=== PATIENT | female | born 1985 | race Caucasian/White ===

== ENCOUNTER 2018-01-15 21:02 | Observation (INO) ==
[2018-01-15] MEDS ORDERED: 0.9 % Sodium Chloride 1,000 ML IVC ONE (21:11)
--- NOTE | 2018-01-15 21:24 | Emergency Department Note ---
Overdose - [facility] Narrative Medical decision making narrative: poison control will follow along, requested troponin, will admit for observation , expect slurred speech with overdose. No rec for narcan at this time. - Medical Records Medical records reviewed: Yes I reviewed the patient's medical records. - Lab Data Lab results reviewed: Yes I reviewed the patient's lab results. Result diagrams: 01/15/18 21:42 01/15/18 21:42 Lab Results 01/15/18 01/15/18 01/15/18 Range/Units 21:42 21:42 21:42 WBC 7.1 (4.3-11.1) K/mcL RBC 4.26 (3.82-4.97) M/mcL Hgb 13.3 (11.5-15.4) g/dL Hct 39.8 (35.3-44.9) % MCV 93.4 (83.0-100.0) fL MCH 31.2 (28.0-33.3) pg MCHC 33.4 (31.6-35.5) g/dL RDW 13.1 (11.5-14.5) % Plt Count 311 (140-400) K/mcL MPV 9.7 (9.4-12.4) fL Immature Gran % 0.3 (0-4) % Seg Neutrophils % 50.4 % Lymphocytes % 40.4 % Monocytes % 7.0 % Eosinophils % 1.3 % Basophils % 0.6 % Neutrophils # 3.6 (1.6-8.9) K/mcL Lymphocytes # 2.9 (0.6-4.6) K/mcL Monocytes # 0.5 (0.0-1.3) K/mcL Eosinophils # 0.1 (0.0-0.6) K/mcL Basophils # 0.0 (0.0-0.2) K/mcL Sodium 142 (136-145) mEq/L Potassium 3.6 (3.5-5.1) mEq/L Chloride 109 H (98-107) mEq/L Carbon Dioxide 24 (23-29) mEq/L BUN 15 (6-20) mg/dL Creatinine 0.88 (0.60-1.20) mg/dL Est GFR ( Amer) > 60 (> 60) Est GFR (Non-Af Amer) > 60 (> 60) BUN/Creatinine Ratio 17 (6-26) Glucose 93 (70-105) mg/dL Calculated Osmolality 295 (280-300) Calcium 9.3 (8.6-10.3) mg/dL Total Bilirubin 0.8 (0.3-1.0) mg/dL Direct Bilirubin 0.2 (0.0-0.2) mg/dL Indirect Bilirubin 0.6 (0.0-1.2) mg/dL AST 40 H (13-39) Units/L ALT 42 (7-52) Units/L Alkaline Phosphatase 174 H (34-104) Units/L Troponin I < 0.03 (< 0.04) ng/mL Serum Total Protein 7.8 (6.4-8.9) g/dL Albumin 3.9 (3.5-5.7) g/dL Globulin 3.9 H (2.4-3.5) g/dL Albumin/Globulin Ratio 1.0 L (1.1-2.2) TSH 0.977 (0.340-5.600) mcIU/mL Serum , Qual Negative (Negative) Urine Color (Yellow) Urine Clarity (Clear) Urine pH (5.0-8.0) pH Units Ur Specific [place] (1.010-1.025) Urine Protein (Neg-Trace) mg/dL Urine Glucose (UA) (Normal) mg/dL Urine Ketones (Negative) mg/dL Urine Blood (Negative) Urine Nitrite (Negative) Urine Bilirubin (Negative) Urine Urobilinogen (Normal) mg/dL Ur Leukocyte Esterase (Negative) Urine Microscopic RBC (0-3) per hpf Urine Microscopic WBC (0-3) per hpf Ur Squamous Epith Cells (None-Few) per lpf Urine Bacteria (None-Few) per hpf Hyaline Casts (None-Few) per lpf Salicylates < 2.5 L (15.0-30.0) mg/dL Urine Opiates Screen (Dijlaz=991) ng/mL Acetaminophen < 10 L (10-20) mcg/mL Ur Barbiturates Screen (Haxnva=236) ng/mL Ur Phencyclidine Scrn (Cutoff=25) ng/mL Ur Amphetamines Screen (Gynkjg=4279) ng/mL U Benzodiazepines Scrn (Bstayu=117) ng/mL Urine Cocaine Screen (Cutoff= 300) ng/mL U Marijuana (THC) Screen (Cutoff = 50) ng/mL Ethyl Alcohol < 10 (Less than 10) mg/dL 01/15/18 01/15/18 Range/Units 21:45 21:45 WBC (4.3-11.1) K/mcL RBC (3.82-4.97) M/mcL Hgb (11.5-15.4) g/dL Hct (35.3-44.9) % MCV (83.0-100.0) fL MCH (28.0-33.3) pg MCHC (31.6-35.5) g/dL RDW (11.5-14.5) % Plt Count (140-400) K/mcL MPV (9.4-12.4) fL Immature Gran % (0-4) % Seg Neutrophils % % Lymphocytes % % Monocytes % % Eosinophils % % Basophils % % Neutrophils # (1.6-8.9) K/mcL Lymphocytes # (0.6-4.6) K/mcL Monocytes # (0.0-1.3) K/mcL Eosinophils # (0.0-0.6) K/mcL Basophils # (0.0-0.2) K/mcL Sodium (136-145) mEq/L Potassium (3.5-5.1) mEq/L Chloride (98-107) mEq/L Carbon Dioxide (23-29) mEq/L BUN (6-20) mg/dL Creatinine (0.60-1.20) mg/dL Est GFR ( Amer) (> 60) Est GFR (Non-Af Amer) (> 60) BUN/Creatinine Ratio (6-26) Glucose (70-105) mg/dL Calculated Osmolality (280-300) Calcium (8.6-10.3) mg/dL Total Bilirubin (0.3-1.0) mg/dL Direct Bilirubin (0.0-0.2) mg/dL Indirect Bilirubin (0.0-1.2) mg/dL AST (13-39) Units/L ALT (7-52) Units/L Alkaline Phosphatase (34-104) Units/L Troponin I (< 0.04) ng/mL Serum Total Protein (6.4-8.9) g/dL Albumin (3.5-5.7) g/dL Globulin (2.4-3.5) g/dL Albumin/Globulin Ratio (1.1-2.2) TSH (0.340-5.600) mcIU/mL Serum , Qual (Negative) Urine Color Dark Yellow (Yellow) Urine Clarity Clear (Clear) Urine pH 6.0 (5.0-8.0) pH Units Ur Specific [place] 1.030 H (1.010-1.025) Urine Protein Trace (Neg-Trace) mg/dL Urine Glucose (UA) Normal (Normal) mg/dL Urine Ketones Negative (Negative) mg/dL Urine Blood Negative (Negative) Urine Nitrite Negative (Negative) Urine Bilirubin Small H (Negative) Urine Urobilinogen Normal (Normal) mg/dL Ur Leukocyte Esterase Trace H (Negative) Urine Microscopic RBC 0-3 (0-3) per hpf Urine Microscopic WBC 5-15 H (0-3) per hpf Ur Squamous Epith Cells Many H (None-Few) per lpf Urine Bacteria None Seen (None-Few) per hpf Hyaline Casts Few (None-Few) per lpf Salicylates (15.0-30.0) mg/dL Urine Opiates Screen Positive H (Ozdtgu=930) ng/mL Acetaminophen (10-20) mcg/mL Ur Barbiturates Screen Negative (Aijsqc=176) ng/mL Ur Phencyclidine Scrn Negative (Cutoff=25) ng/mL Ur Amphetamines Screen Positive H (Cwlxwf=3049) ng/mL U Benzodiazepines Scrn Negative (Qwldbk=909) ng/mL Urine Cocaine Screen Positive H (Cutoff= 300) ng/mL U Marijuana (THC) Screen Positive H (Cutoff = 50) ng/mL Ethyl Alcohol (Less than 10) mg/dL - Radiology Data Radiology results reviewed: Yes I reviewed the patient's radiology results. Head CT 01/15/18 21:12 IMPRESSION: No acute intracranial abnormality. D/ / Qing Shaikh MD / Qing Shaikh MD Interpreting Provider: Qing Shaikh MD - EKG Data EKG attestation: Yes I reviewed and interpreted this EKG. Overdose HPI - General Chief Complaint: ED Overdose Time Seen by Provider: 01/15/18 21:10 Source: patient, EMS Limitations: no limitations Nursing Notes Reviewed: Yes Vital Signs Reviewed: Yes - History of Present Illness HPI Narrative: 32-year-old female presents with intentional overdose. Patient is homeless and stated she wanted to go to sleep. She take a total of 4 800 mg gabapentin tablets. She is currently complaining of some head pain in abdominal pain. She reports some vomiting. Denies any shortness of breath. He other drug use. She has history of heroin use. Pt Subjective Complaint: intentional overdose - Related Data Previous Rx's Medication Instructions Recorded NALOXONE 4 MG Nasal [place] [Narcan] 4 mg NS AD #2 sprays 01/15/18 Allergies Allergy/AdvReac Type Severity Reaction Status Date / Time ketorolac [From Toradol] Allergy Hives Verified 10/11/17 17:18 All systems ED: reviewed and negative except as stated. Review of Systems: As Per HPI Constitutional: Denies: fever, chills ENT ED: Denies: congestion Cardiovascular: Denies: chest pain Respiratory: Denies: dyspnea Gastrointestinal: Reports: abdominal pain, nausea Neurological: Reports: headache. Denies: weakness, numbness Past Medical History - Past Medical History Attestation: Yes The following information was validated with the patient. Source: patient Medical history: Reports: valvular heart disease Surgical history: Reports: cholecystectomy Psychiatric history: Reports: anxiety, bipolar, depression, prior suicide attempt, schizophrenia CARD PLACER history: Reports: bilateral tubal ligation - Social History Smoking Status: Current every day smoker Smokeless Tobacco Status: No Alcohol use: Reports: none Drug use: Reports: opiates, methamphetamine, IV Drug Use Physical Exam - General Limitations: no limitations General appearance: alert, appears intoxicated, other (Slurring her speech) - Head Head exam: atraumatic, normocephalic, normal inspection - Eye Eye exam: Present: normal appearance, PERRL, EOMI. Absent: nystagmus - ENT ENT exam: normal exam, normal oropharynx, mucous membranes moist - Neck Neck exam: Present: normal inspection, full ROM, trachea midline - Chest Chest inspection: Present: normal inspection, symmetric chest wall rise. Absent : tenderness - Respiratory Respiratory exam: Present: normal lung sounds bilaterally - Cardiovascular Cardiovascular exam: Present: regular rate, normal rhythm, normal heart sounds. Absent: systolic murmur, diastolic murmur - Abdominal Exam Abdominal exam: Present: soft, tenderness, normal bowel sounds. Absent: distention, guarding, rebound, rigidity Abdominal tenderness: Present: epigastrium - Neurological Exam Neurological exam: Present: alert, oriented X3, CN II-XII intact - Expanded Neurological Exam Patient oriented to: Present: person, place, time Motor strength - LUE: 5/5 Motor strength - RUE: 5/5 Motor strength - LLE: 5/5 Motor strength - RLE: 5/5 - Skin Skin exam: Present: warm, dry, intact, normal color Course Course Narrative: Patient slurring her speech. She is complaining of headaches. She admits to potentially taking for 800 mg tablets of gabapentin so she can sleep because she has not slept for days. Patient has been pink slipped due to the intention of overdose. She moves all for extremities without difficulty. No cervical neck tenderness. Denies any head trauma. Tox screen labs ordered. - Reevaluation(s) Reevaluation #1: CT of the head does not reveal any intracranial abnormality. Review of her labs shows polysubstance abuse. My attending contacted poison control who recommends continued observation. No interventions required at this time. Patient will be admitted for overdose and polysubstance abuse. After further clarification patient states this is accidental as she only wanted to sleep. She denies any suicidal or homicidal ideation. She denies any intent to harm herself. Patient will be admitted to the hospitalist service for observation. Patient may require psychiatric evaluation. - Consultations Consultation #1: Spoke with on-call hospitalist hemanth Harvey to admit for polysubstance abuse, gabapentin overdose. No further orders at this time Vital Signs Temperature 98.6 F 01/15/18 21:11 Pulse Rate 84 01/15/18 21:11 Respiratory Rate 14 01/15/18 21:11 Blood Pressure 122/67 01/15/18 21:11 O2 Sat by Pulse Oximetry 93 01/15/18 21:11 Temperature 97.7 F 01/15/18 23:50 Pulse Rate 73 01/15/18 23:50 Respiratory Rate 16 01/15/18 23:50 Blood Pressure 109/73 01/15/18 23:50 O2 Sat by Pulse Oximetry 95 01/15/18 23:50 Oxygen Delivery Oxygen Delivery Room Air Disposition Clinical Impression: Polysubstance abuse Accidental drug ingestion Qualifiers: Encounter type: initial encounter Qualified Code(s): T50.901A - Poisoning by unspecified drugs, medicaments and biological substances, accidental ( unintentional), initial encounter Disposition: Admitted As Inpatient Time of Disposition: 22:54 Attestation Statement - Attestation Attestation: I examined this patient and my medical decision-making was reviewed with the Resident Physician. I agree with the documented findings, disposition and treatment plan as described except to the extent set forth below. Polysubstance abuse overdose with suspected gabapentin ingestion. Patient will be admitted for observation and until clearance of mental status. Patient's airway was stable at time of admission.
[2018-01-15 21:52] LABS: Bilirubin,Urine Small (Negative); Blood,Urine Negative (Negative); Clarity,Urine Clear (Clear); Color,Urine Dark Yellow (Yellow); Glucose,Urine (UA) Normal (Normal); Ketones,Urine Negative (Negative); Leukocyte Esterase,Urine Trace (Negative); Nitrite,Urine Negative (Negative); Protein,Urine Trace mg/dL (Neg-Trace); Urobilinogen,Urine Normal (Normal)
[2018-01-15 21:54] LABS: Bacteria,Urine None Seen per hpf (None-Few); RBC,Urine 0-3 per hpf (0-3); Squamous Epithelial Cell,Urine Many per lpf (None-Few)
[2018-01-15 21:57] LABS: Basophils % 0.6 %; Eosinophils # 0.1 K/mcL (0.0-0.6); Eosinophils % 1.3 %; Hematocrit 39.8 % (35.3-44.9); Hemoglobin 13.3 g/dL (11.5-15.4); Immature Granulocytes % 0.3 % (0-4); Lymphocytes # 2.9 K/mcL (0.6-4.6); Lymphocytes % 40.4 %; Mean Corpuscular HGB Conc 33.4 g/dL (31.6-35.5); Mean Corpuscular Hemoglobin 31.2 pg (28.0-33.3); Mean Corpuscular Volume 93.4 fL (83.0-100.0); Mean Platelet Volume 9.7 fL (9.4-12.4); Monocytes # 0.5 K/mcL (0.0-1.3); Neutrophils # 3.6 K/mcL (1.6-8.9); Platelet Count 311 K/mcL (140-400); Red Blood Count 4.26 M/mcL (3.82-4.97); Red Cell Distribution Width 13.1 % (11.5-14.5); Segmented Neutrophils % 50.4 %
[2018-01-15 21:58] LABS: Hyaline Casts,Urine Few per lpf (None-Few)
[2018-01-15 22:02] LABS: Amphetamine Screen,Urine Positive ng/mL (Cutoff=1000); Barbiturate Screen,Urine Negative ng/mL (Cutoff=200); Benzodiazepines Screen,Urine Negative ng/mL (Cutoff=200); Cannabinoid Screen,Urine Positive ng/mL (Cutoff = 50); Cocaine Screen,Urine Positive ng/mL (Cutoff= 300); Opiate Screen,Urine Positive ng/mL (Cutoff=300); Phencyclidine Screen,Urine Negative ng/mL (Cutoff=25)
[2018-01-15 22:12] LABS: Acetaminophen < 10 mcg/mL (10-20); Alanine Aminotransferase 42 Units/L (7-52); Albumin 3.9 g/dL (3.5-5.7); Alkaline Phosphatase 174 Units/L (34-104); Aspartate Amino Transferase 40 Units/L (13-39); BUN/Creatinine Ratio 17 (6-26); Bilirubin,Direct 0.2 mg/dL (0.0-0.2); Bilirubin,Indirect 0.6 mg/dL (0.0-1.2); Bilirubin,Total 0.8 mg/dL (0.3-1.0); Blood Urea Nitrogen 15 mg/dL (6-20); Calcium 9.3 mg/dL (8.6-10.3); Carbon Dioxide 24 mEq/L (23-29); Chloride 109 mEq/L (98-107); Ethanol < 10 mg/dL (Less than 10); Globulin 3.9 g/dL (2.4-3.5); Glucose 93 mg/dL (70-105); Osmolality,Calculated 295 (280-300); Potassium 3.6 mEq/L (3.5-5.1); Salicylate < 2.5 mg/dL (15.0-30.0); Sodium 142 mEq/L (136-145); Total Protein 7.8 g/dL (6.4-8.9); eGFR For African Americans > 60 (> 60); eGFR For Non-African Americans > 60 (> 60)
[2018-01-15 22:25] LABS: Thyroid Stimulating Hormone 0.977 mcIU/mL (0.340-5.600)
[2018-01-15] MEDS ORDERED: NALOXONE 4 MG Nasal Spray 2 Sprays/Box NS ONE (22:51)
[2018-01-15 22:56] LABS: Troponin I < 0.03 ng/mL (< 0.04)
--- NOTE | 2018-01-16 07:17 | Electrocardiograph Report ---
[place] [id number] Test Date: 2018-01-15 Pat Name: Di Pozo Department: 103 Room: 3B22 Gender: F Casing Tester: KEYANNA : 1985 Requested By: Panda Nguyen Order Number: [id number] Reading MD: Jose E Rizvi Measurements Intervals [place] Rate: 76 P: 47 [place]: 149 QRS: 40 QRSD: 106 T: 23 QT: 400 QTc: 430 Interpretive Statements SINUS RHYTHM Electronically Signed On 01-16-2018 7:15:34 EDT by Jose E Rizvi
[2018-01-16] MEDS ORDERED: Naloxone 0.4 MG/ML INJ IVP PRN (08:07)
--- NOTE | 2018-01-16 08:13 | Internal Med History&Physical ---
Date of Encounter: 01/16/18 Time of Encounter: 08:10 Internal Medicine - H&P: HPI Chief complaint: Overdose Admitted From: Home Plans for Post Hospital Care: Home History of present illness: Ms. Pozo is a 32 year old female with history of valvular heart disease, anxiety, bipolar, depression, prior suicide attempt, and schizophrenia. Presents today with intentional overdose per ED physician report. However, the patient states that it was unintentional. She reports taking a total of 4-800 mg gabapentin tablets "because she just wanted to go to sleep". She denies any suicidal/homicidal ideation (but this was reported in the ED per ED physician report), hallucinations, seizure-like activity, nausea, vomiting, additional drug use. However, she does have a history of heroin abuse. Past Med Surg Social Fam HX - Past Medical History Medical history: valvular heart disease Psychiatric history: anxiety, bipolar, depression, prior suicide attempt, schizophrenia - Past Surgical History Surgical History: cholecystectomy - Social History Smoking Status: Current every day smoker Smokeless Tobacco Status: No Alcohol use: none Drug use: opiates, methamphetamine, IV Drug Use - Family History Father Family Member Ethnicity: Non- Living Status: Still Living Hx Family Endocrine Disorder: Yes Internal Medicine - H&P: Meds NALOXONE 4 MG Nasal [place] [Narcan] 4 mg NS AD #2 sprays 01/15/18 [Rx] 3 Allergy/AdvReac Type Severity Reaction Status Date / Time ketorolac [From Toradol] Allergy Hives Verified 10/11/17 17:18 All Systems PM: A 10-system review of systems was performed and is negative for pertinent findings except as documented above in the HPI. - Constitutional Constitutional: no chills, no fever(s), no night sweats - EENT Eyes: no change in vision, no discharge, no pain, no photophobia Ears: no ear discharge, no ear pain, no tinnitus Nose, mouth and throat: no dysphagia, no nasal discharge, no neck pain, no sore throat - Cardiovascular Cardiovascular ROS IM: no chest pain, no diaphoresis, no dyspnea, no lightheadedness, no palpitations, no syncope - Respiratory Respiratory: no cough, no dyspnea, no wheezing, no excessive phlegm production - Gastrointestinal Gastrointestinal: no abdominal pain, no diarrhea, no hematemesis, no hematochezia, no melena, no nausea, no vomiting - Genitourinary Genitourinary: no change in urinary stream, no dysuria, no flank pain, no hematuria - Musculoskeletal Musculoskeletal ROS IM: no numbness, no tingling - Integumentary Integumentary IM: no rash, no unusual bruising - Neurological Neurological ROS: no confusion, no convulsions, no focal weakness, no numbness, no tingling, no tremor(s) - Psychiatric Psychiatric: no auditory hallucinations, no homicidal ideation, no hopelessness , no irritability, no suicidal ideation, no visual hallucinations - Hematologic/Lymphatic Hematologic/Lymphatic: no easy bruising - Constitutional Vitals: Temp Pulse Resp BP Pulse Ox 97.4 F L 74 16 120/73 96 01/16/18 08:04 01/16/18 08:04 01/16/18 08:04 01/16/18 08:04 01/16/18 08:04 General appearance: Present: A&O X 3 - Head Head exam: Present: atraumatic, normocephalic - Eye Eye exam: Present: PERRL, conjuntiva pink, sclera anicteric Pupils: Present: PERRL - Neck Neck exam general surgery: Present: supple, trachea midline. Absent: lymphadenopathy - Respiratory Respiratory exam: Present: CTAB. Absent: accessory muscle use, rales, rhonchi, wheezes - Cardiovascular Cardiovascular exam: Present: RRR, +S1, +S2. Absent: diastolic murmur, gallop, rubs, systolic murmur - GI/Abdominal GI/Abdominal exam: Present: normal bowel sounds, soft, no peritoneal signs. Absent: distended, tenderness - Extremities Exam Extremities exam: Present: warm, radial pulses palpable and symmetrical. Absent : calf tenderness, cyanotic, pedal edema - Neurological Exam Neurological exam: Present: CN II-XII intact, oriented X3, no focal deficits. Absent: pronater drift, facial droop, speech deficit - Skin Skin exam: Present: dry, intact Internal Med - H&P Results - Labs CBC & Chem 7: 01/15/18 21:42 01/15/18 21:42 - Impressions Impressions Head CT 01/15/18 21:12 IMPRESSION: No acute intracranial abnormality. D/ / Qing Shaikh MD / Qing Shaikh MD Interpreting Provider: Qing Shaikh MD - Assessment and plan (1) Overdose Current Visit: Yes Status: Acute Assessment and plan: Presents today with a drug overdose; it was reported to the ED physician that this was intentional however, upon my assessment the patient denies any intentional intent for overdose. Additionally, she denies any suicidal ideation /intent or homicidal ideation/intent. The patient is noted to have a prior history of suicide attempt and has a history of polysubstance abuse. Remains slightly lethargic upon my assessment but denies any auditory or visual hallucinations. She reports that she took 4-800 mg tablets of gabapentin in an attempt to sleep. UDS positive for opiates, amphetamines, cocaine and marijuana -Consult social sciences research scientist to discuss potential drug rehabilitation upon discharge due to history of polysubstance abuse -Consult psychiatry to assess intent for suicide -Continuous sitter -Closely monitor for signs and symptoms of withdrawal -Ativan when necessary Qualifiers: Encounter type: initial encounter Injury intent: intentional self-harm Qualified Code(s): T50.902A - Poisoning by unspecified drugs, medicaments and biological substances, intentional self-harm, initial encounter (2) Sedated due to medication Current Visit: Yes Status: Acute Assessment and plan: see above (3) Polysubstance dependence Current Visit: Yes Status: Chronic Assessment and plan: History of polysubstance abuse Admitted today with questionable intentional overdose UDS positive for opiates, amphetamines, cocaine and marijuana Consider drug rehabilitation on discharge; consult social sciences research scientist to discuss (4) DVT prophylaxis Current Visit: Yes Status: Acute Assessment and plan: Heparin 5000 units SC BID - Time Spent With Patient Total time spent is greater than 50% in coordination of care (as documented) at patient's floor/unit and/or counseling patient: 25 - 35 minutes
[2018-01-16] MEDS: *HR* LORazepam 2 MG/ML VIAL IVP PRN (09:24)
[2018-01-16] MEDS: Ondansetron 4 MG/2 ML VIAL IVP PRN ×2 (11:45→18:06)
[2018-01-16] MEDS ORDERED: *HR* LORazepam 2 MG/ML VIAL IVP STA (15:51)
[2018-01-16] MEDS ORDERED: *HR* LORazepam 2 MG/ML VIAL ONE (15:55)
--- NOTE | 2018-01-16 15:58 | Consult Note ---
Date of Encounter: 01/16/18 Time of Encounter: 14:45 History of Present Illness Requesting Physician: Laura Valles MD History of present illness: Pt is a 32 yo, , female, x1 with 7 children (between 5-17) who presents for polysubstance use D/O, opioid use D/O and Schizoaffective D/O bipolar type. Pt noted she overdosed on Gabapentin due to wanting to go to sleep to reduce with drawal symptoms per pt. Pt noted she is optimistic to return home with her family. Pt agreed to initate risperdione 2 m g PO QHS for mood. Pt was educated on the risks benifits and side effects of the medication including no medication. Pt agreed to take medication. PT noted she was in active withdrawal and was having trouble staying awake during the interview. Pt denied any side effects to current medications. Pt noted she felt safe and comfortable on the unit. Pt was in agreement with treatment plan. Pt noted that she is doing not too good today. Pt noted she slept some, " last night. Pt noted her appetite is improving. Pt rated her depression a 0, on a scale of zero to ten with ten being the worst and zero being none. Pt rate her anxiety a 0, on the same scale. Pt denied any visual hallucinations, however noted chronic auditory hallucinations of voices that are muffled. Pt denied any thoughts to harm herself or anyone else. Pt noted a family hx of schizoaffective D/O in her mother. Pt denies any family hx of suicides P denied any previous inpt psychatric admissions. Pt denied any current pending legal issues Pt noted her highest education in 9th grade. Tobacco: 1 ppd Alcohol: Denies Street: Methamphetamine and Heroin IV regularly Caffeine: 2-3 per day MSE: Alert and Oriented x3 Appearance: neatly groomed dressed in appropriate hospital attire. Behavior: friendly, courteous, polite Speech: Fluent, normal tone, normal rate Mood: depressed Affect: mood congruent Thought content: no HI noted, no SI noted, Questionable delusions noted Psychosis: noted auditory hallucinations. Thought Process: Linear coherent goal directed yet reduction in neurocognition noted due to withdrawal symptoms. Judgment: fair. Insight: questionable. 1.Interval hx 2.Continue current medications 3.Review current labs 4.Pt had an opportunity to ask questions and discuss current treatment plan. 5.Supportive therapy was provided 6.Pt encouraged to consider group or individual therapy 7.Pt was in agreement with treatment plan. 8.Pt was educated on the risks benefits and side effects of current medications. 9. Continue pt with sitter. 10. Start risperidone 2 mg PO QHS for mood 11. Transfer to In psych once medically stable. CC: Laura Valles MD Past Med Surg Social Fam HX - Past Medical History Medical history: valvular heart disease - Past Psychiatric History Psychiatric history: Reports: schizophrenia, other Past psychiatric history details: schizoaffective D/O bipolar type. Family psychiatric history: Yes Family History of Suicide: None - Past Surgical History Surgical History: cholecystectomy - Social History Smoking Status: Current every day smoker Smokeless Tobacco Status: No Alcohol use: none Drug use: opiates, methamphetamine, IV Drug Use - Family History Father Family Member Ethnicity: Non- Living Status: Still Living Hx Family Endocrine Disorder: Yes Medications & Allergies NALOXONE 4 MG Nasal [place] [Narcan] 4 mg NS AD #2 sprays 01/15/18 [Rx] 3 Allergy/AdvReac Type Severity Reaction Status Date / Time ketorolac [From Toradol] Allergy Hives Verified 01/16/18 11:17 Psychiatry Exam - Constitutional Vitals: Temp Pulse Resp BP Pulse Ox 96.0 F L 67 16 108/72 99 01/16/18 12:09 01/16/18 12:09 01/16/18 12:09 01/16/18 12:09 01/16/18 12:09 - Psychiatric Patient Orientation: Yes Person, Yes Time, Yes Place Level of alertness: Alert Behavior: calm Psychomotor activity: Slowed Eye Contact: Maintains Eye Contact Mood Description: Depressed Affect description: congruent with mood, flat Speech Volume: Normal Speech pattern: normal rate, normal rhythm, normal tone, fluent, slowed Language & Vocabulary: consistent with education Thought Process: Intact, Logical, Linear, Goal Oriented Thought Content: Yes Intact Attention Span Ability: Capable of Focused Attention Memory Description: Grossly Intact Patient Reliability: Questionable Historian Fund of knowledge: Yes average Intelligence Estimate: Average Judgment: Limited Insight: Partial Results - Labs Labs: Laboratory Last Values WBC 7.1 K/mcL (4.3-11.1) 01/15/18 21:42 RBC 4.26 M/mcL (3.82-4.97) 01/15/18 21:42 Hgb 13.3 g/dL (11.5-15.4) 01/15/18 21:42 Hct 39.8 % (35.3-44.9) 01/15/18 21:42 MCV 93.4 fL (83.0-100.0) 01/15/18 21:42 MCH 31.2 pg (28.0-33.3) 01/15/18 21:42 MCHC 33.4 g/dL (31.6-35.5) 01/15/18 21:42 RDW 13.1 % (11.5-14.5) 01/15/18 21:42 Plt Count 311 K/mcL (140-400) 01/15/18 21:42 MPV 9.7 fL (9.4-12.4) 01/15/18 21:42 Immature Gran % 0.3 % (0-4) 01/15/18 21:42 Seg Neutrophils % 50.4 % 01/15/18 21:42 Lymphocytes % 40.4 % 01/15/18 21:42 Monocytes % 7.0 % 01/15/18 21:42 Eosinophils % 1.3 % 01/15/18 21:42 Basophils % 0.6 % 01/15/18 21:42 Neutrophils # 3.6 K/mcL (1.6-8.9) 01/15/18 21:42 Lymphocytes # 2.9 K/mcL (0.6-4.6) 01/15/18 21:42 Monocytes # 0.5 K/mcL (0.0-1.3) 01/15/18 21:42 Eosinophils # 0.1 K/mcL (0.0-0.6) 01/15/18 21:42 Basophils # 0.0 K/mcL (0.0-0.2) 01/15/18 21:42 Sodium 142 mEq/L (136-145) 01/15/18 21:42 Potassium 3.6 mEq/L (3.5-5.1) 01/15/18 21:42 Chloride 109 mEq/L (98-107) H 01/15/18 21:42 Carbon Dioxide 24 mEq/L (23-29) 01/15/18 21:42 BUN 15 mg/dL (6-20) 01/15/18 21:42 Creatinine 0.88 mg/dL (0.60-1.20) 01/15/18 21:42 Est GFR ( Amer) > 60 (> 60) 01/15/18 21:42 Est GFR (Non-Af Amer) > 60 (> 60) 01/15/18 21:42 BUN/Creatinine Ratio 17 (6-26) 01/15/18 21:42 Glucose 93 mg/dL (70-105) 01/15/18 21:42 Calculated Osmolality 295 (280-300) 01/15/18 21:42 Calcium 9.3 mg/dL (8.6-10.3) 01/15/18 21:42 Total Bilirubin 0.8 mg/dL (0.3-1.0) 01/15/18 21:42 Direct Bilirubin 0.2 mg/dL (0.0-0.2) 01/15/18 21:42 Indirect Bilirubin 0.6 mg/dL (0.0-1.2) 01/15/18 21:42 AST 40 Units/L (13-39) H 01/15/18 21:42 ALT 42 Units/L (7-52) 01/15/18 21:42 Alkaline Phosphatase 174 Units/L (34-104) H 01/15/18 21:42 Troponin I < 0.03 ng/mL (< 0.04) 01/15/18 21:42 Serum Total Protein 7.8 g/dL (6.4-8.9) 01/15/18 21:42 Albumin 3.9 g/dL (3.5-5.7) 01/15/18 21:42 Globulin 3.9 g/dL (2.4-3.5) H 01/15/18 21:42 Albumin/Globulin Ratio 1.0 (1.1-2.2) L 01/15/18 21:42 TSH 0.977 mcIU/mL (0.340-5.600) 01/15/18 21:42 Serum , Qual Negative (Negative) 01/15/18 21:42 Urine Color Dark Yellow (Yellow) 01/15/18 21:45 Urine Clarity Clear (Clear) 01/15/18 21:45 Urine pH 6.0 pH Units (5.0-8.0) 01/15/18 21:45 Ur Specific [place] 1.030 (1.010-1.025) H 01/15/18 21:45 Urine Protein Trace mg/dL (Neg-Trace) 01/15/18 21:45 Urine Glucose (UA) Normal mg/dL (Normal) 01/15/18 21:45 Urine Ketones Negative mg/dL (Negative) 01/15/18 21:45 Urine Blood Negative (Negative) 01/15/18 21:45 Urine Nitrite Negative (Negative) 01/15/18 21:45 Urine Bilirubin Small (Negative) H 01/15/18 21:45 Urine Urobilinogen Normal mg/dL (Normal) 01/15/18 21:45 Ur Leukocyte Esterase Trace (Negative) H 01/15/18 21:45 Urine Microscopic RBC 0-3 per hpf (0-3) 01/15/18 21:45 Urine Microscopic WBC 5-15 per hpf (0-3) H 01/15/18 21:45 Ur Squamous Epith Cells Many per lpf (None-Few) H 01/15/18 21:45 Urine Bacteria None Seen per hpf (None-Few) 01/15/18 21:45 Hyaline Casts Few per lpf (None-Few) 01/15/18 21:45 Salicylates < 2.5 mg/dL (15.0-30.0) L 01/15/18 21:42 Urine Opiates Screen Positive ng/mL (Ejtowi=265) H 01/15/18 21:45 Acetaminophen < 10 mcg/mL (10-20) L 01/15/18 21:42 Ur Barbiturates Screen Negative ng/mL (Jrmjhj=387) 01/15/18 21:45 Ur Phencyclidine Scrn Negative ng/mL (Cutoff=25) 01/15/18 21:45 Ur Amphetamines Screen Positive ng/mL (Dphzrh=8588) H 01/15/18 21:45 U Benzodiazepines Scrn Negative ng/mL (Rfudwi=540) 01/15/18 21:45 Urine Cocaine Screen Positive ng/mL (Cutoff= 300) H 01/15/18 21:45 U Marijuana (THC) Screen Positive ng/mL (Cutoff = 50) H 01/15/18 21:45 Ethyl Alcohol < 10 mg/dL (Less than 10) 01/15/18 21:42 Consult Discharge Plan - Plan Referrals: NONE,PCP [Primary Care Provider] -
[2018-01-16] MEDS: risperiDONE 1 MG TABLET PO SCH (16:04)
[2018-01-16] MEDS: *HR* Heparin 5,000 UNIT/ML VIAL SQ SCH (18:06)
[2018-01-17] MEDS: Ondansetron 4 MG/2 ML VIAL IVP PRN ×3 (03:21→22:04)
[2018-01-17] MEDS: *HR* Heparin 5,000 UNIT/ML VIAL SQ SCH ×2 (05:14→17:54)
[2018-01-17 06:09] LABS: Basophils % 0.6 %; Eosinophils # 0.2 K/mcL (0.0-0.6); Eosinophils % 2.4 %; Hematocrit 36.8 % (35.3-44.9); Hemoglobin 12.2 g/dL (11.5-15.4); Immature Granulocytes % 0.3 % (0-4); Lymphocytes # 2.1 K/mcL (0.6-4.6); Lymphocytes % 32.1 %; Mean Corpuscular HGB Conc 33.2 g/dL (31.6-35.5); Mean Corpuscular Hemoglobin 30.9 pg (28.0-33.3); Mean Corpuscular Volume 93.2 fL (83.0-100.0); Mean Platelet Volume 10.3 fL (9.4-12.4); Monocytes # 0.4 K/mcL (0.0-1.3); Monocytes % 6.2 %; Neutrophils # 3.9 K/mcL (1.6-8.9); Platelet Count 264 K/mcL (140-400); Red Blood Count 3.95 M/mcL (3.82-4.97); Red Cell Distribution Width 13.2 % (11.5-14.5); Segmented Neutrophils % 58.4 %
[2018-01-17 06:27] LABS: BUN/Creatinine Ratio 21 (6-26); Blood Urea Nitrogen 15 mg/dL (6-20); Calcium 8.6 mg/dL (8.6-10.3); Carbon Dioxide 24 mEq/L (23-29); Chloride 110 mEq/L (98-107); Glucose 103 mg/dL (70-105); Osmolality,Calculated 295 (280-300); Potassium 3.8 mEq/L (3.5-5.1); Sodium 142 mEq/L (136-145); eGFR For African Americans > 60 (> 60); eGFR For Non-African Americans > 60 (> 60)
[2018-01-17] MEDS: *HR* LORazepam 2 MG/ML VIAL IVP PRN ×2 (08:10→16:12)
[2018-01-17] MEDS: risperiDONE 1 MG TABLET PO SCH (08:10)
--- NOTE | 2018-01-17 12:13 | Internal Med Progress Note ---
Date of Encounter: 01/17/18 Time of Encounter: 11:00 - Assessment and plan (1) Overdose Current Visit: Yes Status: Acute Assessment and plan: Presented with drug overdose, concern for intentional versus accidental; she took 400 mg tablets of gabapentin and attempt to sleep. she initially reported to the ED physician that this was intentional. However, she has continued to deny any suicidal ideation. She does admit to being depressed and having drug abuse issues but states that she does not want to take her life. Psychiatry in consultation and has seen the patient. Recommendations are as follows -media services coordinator on board to discuss potential drug rehabilitation upon discharge due to history of polysubstance abuse -Psychiatry seeing in consultation- -Continuous sitter -Closely monitor for signs and symptoms of withdrawal -Ativan when necessary -Restart risperidone per psychiatry-2 mg by mouth daily at bedtime remitted -Consider DC to inpatient psych once medically stable per recommendations of psychiatry; patient would benefit from group/individual therapy Qualifiers: Encounter type: initial encounter Injury intent: intentional self-harm Qualified Code(s): T50.902A - Poisoning by unspecified drugs, medicaments and biological substances, intentional self-harm, initial encounter (2) Sedated due to medication Current Visit: Yes Status: Resolved Assessment and plan: Resolved (3) Polysubstance dependence Current Visit: Yes Status: Chronic Assessment and plan: History of polysubstance abuse The patient was admitted for questionable intentional versus accidental overdose. UDS positive for opiates, amphetamines, cocaine and marijuana Consider drug rehabilitation on discharge; consult social work assistant to discuss (4) DVT prophylaxis Current Visit: Yes Status: Acute Assessment and plan: Continue Heparin 5000 units SC BID - Time Spent With Patient Total time spent is greater than 50% in coordination of care (as documented) at patient's floor/unit and/or counseling patient: 25 - 35 minutes - Subjective Interval history: Patient admitted for suicidal ideation and drug overdose; UDS positive for methamphetamines, opiates, marijuana. Denies any suicidal/homicidal ideation today. Denies any visual or auditory hallucinations. Continues to deny tremors. She is admitting to withdrawal symptoms including nausea, diarrhea, anxiety and agitation. Patient reports that she does wish to quit abusing narcotics but denies any acute psychosis. - Constitutional Vitals: Temp Pulse Resp BP Pulse Ox 98.2 F 94 17 126/76 95 01/17/18 10:56 01/17/18 10:56 01/17/18 10:56 01/17/18 10:56 01/17/18 10:56 General appearance: Present: A&O X 3 - Head Head exam: Present: atraumatic, normocephalic - Eye Eye exam: Present: PERRL, conjuntiva pink, sclera anicteric Pupils: Present: PERRL - Neck Neck exam general surgery: Present: supple, trachea midline. Absent: lymphadenopathy - Respiratory Respiratory exam: Present: CTAB. Absent: accessory muscle use, rales, rhonchi, wheezes - Cardiovascular Cardiovascular exam: Present: RRR, +S1, +S2. Absent: diastolic murmur, gallop, rubs, systolic murmur - GI/Abdominal GI/Abdominal exam: Present: normal bowel sounds, soft, no peritoneal signs. Absent: distended, tenderness - Extremities Exam Extremities exam: Present: warm, radial pulses palpable and symmetrical. Absent : calf tenderness, cyanotic, pedal edema - Neurological Exam Neurological exam: Present: alert, CN II-XII intact, oriented X3, no focal deficits. Absent: pronater drift, facial droop, speech deficit - Psychiatric Psychiatric exam: Present: agitated, anxious, depressed. Absent: homicidal ideation, suicidal ideation - Skin Skin exam: Present: dry, intact Internal Medicine: Result - Labs CBC & Chem 7: 01/17/18 04:33 01/17/18 04:33 Labs: Short CBC 01/17/18 Range/Units 04:33 WBC 6.6 (4.3-11.1) K/mcL Hgb 12.2 (11.5-15.4) g/dL Hct 36.8 (35.3-44.9) % Plt Count 264 (140-400) K/mcL Neutrophils # 3.9 (1.6-8.9) K/mcL BMP 01/17/18 04:33 Sodium 142 Potassium 3.8 Chloride 110 H Carbon Dioxide 24 BUN 15 Creatinine 0.73 Glucose 103 Calcium 8.6 Consult Discharge Plan - Plan Referrals: NONE,PCP [Primary Care Provider] -
--- NOTE | 2018-01-17 20:54 | Psychiatry Progress Note ---
Date of Encounter: 01/17/18 Time of Encounter: 18:15 Subjective Interval history: Pt is a 32 yo, , female, x1 with 7 children (between 5-17) who presents for polysubstance use D/O, opioid use D/O and Schizoaffective D/O bipolar type. Pt noted she overdosed on Gabapentin due to wanting to go to sleep to reduce with drawal symptoms per pt. Pt noted she is doing much better today. Pt agreed to transfer to once stable. Pt agreed to continue risperdione 2 m g PO QHS for mood. Pt was educated on the risks benifits and side effects (including TD which is possibly permanent and EPS symptoms) of the medication including no medication. Pt agreed to take medication. PT noted she was still in active withdrawal and requiring IV prns. Pt denied any side effects to current medications. Pt noted she felt safe and comfortable on the unit. Pt was in agreement with treatment plan. Pt noted that she is doing Pretty good today. Pt noted she slept some, " last night. Pt noted her appetite is improving. Pt rated her depression a 0, on a scale of zero to ten with ten being the worst and zero being none. Pt rate her anxiety a 0, on the same scale. Pt denied any visual hallucinations, however noted chronic auditory hallucinations of voices that are muffled. Pt denied any thoughts to harm herself or anyone else. Pt noted a family hx of schizoaffective D/O in her mother. Pt denies any family hx of suicides P denied any previous inpt psychatric admissions. Pt denied any current pending legal issues Pt noted her highest education in 9th grade. Tobacco: 1 ppd Alcohol: Denies Street: Methamphetamine and Heroin IV regularly Caffeine: 2-3 per day MSE: Alert and Oriented x3 Appearance: neatly groomed dressed in appropriate hospital attire. Behavior: friendly, courteous, polite Speech: Fluent, normal tone, normal rate Mood: depressed Affect: mood congruent Thought content: no HI noted, no SI noted, Questionable delusions noted Psychosis: noted auditory hallucinations. Thought Process: Linear coherent goal directed yet reduction in neurocognition noted due to withdrawal symptoms. Judgment: fair. Insight: questionable. 1.Interval hx 2.Continue current medications 3.Review current labs 4.Pt had an opportunity to ask questions and discuss current treatment plan. 5.Supportive therapy was provided 6.Pt encouraged to consider group or individual therapy 7.Pt was in agreement with treatment plan. 8.Pt was educated on the risks benefits and side effects of current medications. 9. Continue pt with sitter. 10. Start risperidone 2 mg PO QHS for mood 11. Transfer to [facility] psych once medically stable and all IV PRN medications D/C' c 12. Follow up with all scheduled appointments 13. Abstain from any alcohol or illict substances. 14. Pt educated on 90 meetings in 90 day, staying sober and finding a sponsor. 15. Take all medications as prescribed Review of Systems Constitutional: Denies: fever, chills, weakness, weight change Eyes: Denies: eye pain, vision change Ears, Nose, Throat: Denies: ear pain, throat pain, dental pain, hearing loss, congestion Cardiovascular: Denies: chest pain, palpitations, dyspnea on exertion Respiratory: Denies: cough, dyspnea, wheezes Gastrointestinal: Denies: abdominal pain, nausea, vomiting, diarrhea, constipation Musculoskeletal: Denies: joint swelling, joint pain Neurological: Denies: headache, weakness, numbness, memory loss Psychiatric: Reports: auditory hallucinations, confusion, irritability Results - Vital Signs Vital Signs: Temp Pulse Resp BP Pulse Ox 98.2 F 86 14 122/73 98 01/17/18 18:57 01/17/18 18:57 01/17/18 18:57 01/17/18 18:57 01/17/18 18:57 - Labs Labs: Laboratory Results - last 24 hr 01/17/18 01/17/18 04:33 04:33 WBC 6.6 RBC 3.95 Hgb 12.2 Hct 36.8 MCV 93.2 MCH 30.9 MCHC 33.2 RDW 13.2 Plt Count 264 MPV 10.3 Immature Gran % 0.3 Seg Neutrophils % 58.4 Lymphocytes % 32.1 Monocytes % 6.2 Eosinophils % 2.4 Basophils % 0.6 Neutrophils # 3.9 Lymphocytes # 2.1 Monocytes # 0.4 Eosinophils # 0.2 Basophils # 0.0 Sodium 142 Potassium 3.8 Chloride 110 H Carbon Dioxide 24 BUN 15 Creatinine 0.73 Est GFR ( Amer) > 60 Est GFR (Non-Af Amer) > 60 BUN/Creatinine Ratio 21 Glucose 103 Calculated Osmolality 295 Calcium 8.6 Assessment and Plan (1) Schizophrenia Current visit: Yes Status: Acute Plan: Continue hospitalization Risks, benefits, side effects, alternatives discussed w/pt: Yes Patient agreeable to treatment: Yes Qualifiers: Schizophrenia type: unspecified Qualified Code(s): F20.9 - Schizophrenia, unspecified (2) Schizophrenia Current visit: Yes Status: Acute Plan: Continue hospitalization Risks, benefits, side effects, alternatives discussed w/pt: Yes Patient agreeable to treatment: Yes (3) Drug abuse and dependence Current visit: No Status: Acute Plan: Continue hospitalization Risks, benefits, side effects, alternatives discussed w/pt: Yes Patient agreeable to treatment: Yes (4) Overdose Current visit: No Status: Acute Plan: Continue hospitalization Risks, benefits, side effects, alternatives discussed w/pt: Yes Patient agreeable to treatment: Yes (5) Polysubstance dependence Current visit: Yes Status: Chronic Plan: Continue hospitalization Risks, benefits, side effects, alternatives discussed w/pt: Yes Patient agreeable to treatment: Yes Consult Discharge Plan - Plan Referrals: NONE,PCP [Primary Care Provider] - Psychiatry Exam - Constitutional Vitals: Temp Pulse Resp BP Pulse Ox 98.2 F 86 14 122/73 98 01/17/18 18:57 01/17/18 18:57 01/17/18 18:57 01/17/18 18:57 01/17/18 18:57 General appearance: age & developmentally appropriate - Musculoskeletal Gait: normal Strength & Tone: normal for patient - Psychiatric Patient Orientation: Yes Person, Yes Time, Yes Place Level of alertness: Alert Behavior: calm, cooperative Psychomotor activity: Slowed Eye Contact: Maintains Eye Contact Mood Description: Euthymic/stable Affect description: congruent with mood Speech Volume: Normal Speech pattern: normal rate, normal rhythm, normal tone, fluent Language & Vocabulary: consistent with education Thought Process: Intact, Logical Thought Content: Yes Intact Perceptual Disturbances: Yes Auditory hallucinations Attention Span Ability: Capable of Sustained Attention Memory Description: Grossly Intact Patient Reliability: Questionable Historian Fund of knowledge: Yes average Intelligence Estimate: Average Judgment: Fair Insight: Partial
[2018-01-18 00:07] VITALS: BP 130/93
[2018-01-18] MEDS: *HR* LORazepam 1 MG TABLET PO PRN ×2 (00:23→09:14)
[2018-01-18] MEDS: *HR* Heparin 5,000 UNIT/ML VIAL SQ SCH (05:50)
[2018-01-18] MEDS: risperiDONE 1 MG TABLET PO SCH (09:14)
[2018-01-18] MEDS: Ondansetron 4 MG/2 ML VIAL IVP PRN (09:14)
--- NOTE | 2018-01-18 09:17 | Internal Med Progress Note ---
Date of Encounter: 01/18/18 Time of Encounter: 09:15 - Assessment and plan (1) Schizophrenia Current Visit: Yes Status: Acute Assessment and plan: Patient with a history of schizophrenia. She has not been taking antipsychotic medication. Family history schizoaffective disorder, no family history of suicide, no prior inpatient psych admissions. Admitted for accidental drug overdose versus intentional. Reporting that she had not slept in 10 days due to methamphetamine abuse and and taken high doses of gabapentin order to help sleep. However, there was some concern for suicidal ideation in the ED. Psychiatry consult was and has seen the patient. Offering supportive therapy, patient encouraged to participate in group and individual therapy. Psychiatrist restarted patient's risperidone 2 mg by mouth daily at bedtime for mood. Recommendations are to transfer to inpatient psych once medically stable. Patient was started on oral benzodiazepine medications yesterday evening and has been tolerating well. She is continuing to have nausea and diarrhea but this can be taken care of with oral antiemetics and antidiarrheals. Plan to discharge to inpatient psych today with oral Ativan. Patient has been instructed that she would benefit from abstention of illicit drug and alcohol use as well as finding a sponsor and attending meetings Qualifiers: Schizophrenia type: undifferentiated schizophrenia Qualified Code(s): F20.3 - Undifferentiated schizophrenia (2) Overdose Current Visit: Yes Status: Acute Assessment and plan: Presented with drug overdose, concern for intentional versus accidental. He does not appear to have suicidal ideation. Insight closely following. -Continuous sitter -Closely monitor for signs and symptoms of withdrawal; withdrawal symptoms improving compared to yesterday -Ativan transition to oral by mouth 3 times a day, tolerating well -Tolerating risperidone well -Plan is to DC to inpatient psych today Qualifiers: Encounter type: initial encounter Injury intent: intentional self-harm Qualified Code(s): T50.902A - Poisoning by unspecified drugs, medicaments and biological substances, intentional self-harm, initial encounter (3) Sedated due to medication Current Visit: Yes Status: Resolved Assessment and plan: Resolved (4) Polysubstance dependence Current Visit: Yes Status: Chronic Assessment and plan: History of polysubstance abuse. UDS positive for opiates, amphetamines, cocaine and marijuana Consider drug rehabilitation on discharge; consult geriatric social worker to discuss Transfer to inpatient psych today, resources regarding drug rehabilitation meetings to be given per psychiatry during inpatient stay (5) DVT prophylaxis Current Visit: Yes Status: Acute Assessment and plan: On heparin for DVT prophylaxis, discontinue upon discharge to inpatient psych. Increase activity - Time Spent With Patient Total time spent is greater than 50% in coordination of care (as documented) at patient's floor/unit and/or counseling patient: 25 - 35 minutes - Subjective Interval history: Patient admitted for suicidal ideation and drug overdose; UDS positive for methamphetamines, opiates, marijuana. Denies any suicidal/homicidal ideation today. Denies any visual or auditory hallucinations. Continues to deny tremors. She is admitting to withdrawal symptoms including nausea, diarrhea, anxiety and agitation. Patient reporting that nausea vomiting persists but agitation is improved, still appears to be anxious per my assessment this morning. Patient reports that she would like to quit abusing narcotics. Plan is to discharge to inpatient psych today. - Constitutional Vitals: Temp Pulse Resp BP Pulse Ox 97.8 F 85 14 130/93 97 01/18/18 00:07 01/18/18 00:07 01/18/18 00:07 01/18/18 00:07 01/18/18 00:07 General appearance: Present: A&O X 3 - Head Head exam: Present: atraumatic, normocephalic - Eye Eye exam: Present: PERRL, conjuntiva pink, sclera anicteric Pupils: Present: PERRL - Neck Neck exam general surgery: Present: supple, trachea midline. Absent: lymphadenopathy - Respiratory Respiratory exam: Present: CTAB. Absent: accessory muscle use, rales, rhonchi, wheezes - Cardiovascular Cardiovascular exam: Present: RRR, +S1, +S2. Absent: diastolic murmur, gallop, rubs, systolic murmur - GI/Abdominal GI/Abdominal exam: Present: normal bowel sounds, soft, no peritoneal signs. Absent: distended, tenderness - Extremities Exam Extremities exam: Present: warm, radial pulses palpable and symmetrical. Absent : calf tenderness, cyanotic, pedal edema - Neurological Exam Neurological exam: Present: CN II-XII intact, oriented X3, no focal deficits. Absent: pronater drift, facial droop, speech deficit - Psychiatric Psychiatric exam: Present: anxious, depressed, flat affect. Absent: agitated, homicidal ideation, normal affect, suicidal ideation - Skin Skin exam: Present: dry, intact Internal Medicine: Result - Labs CBC & Chem 7: 01/17/18 04:33 01/17/18 04:33 Consult Discharge Plan - Plan Referrals: NONE,PCP [Primary Care Provider] -
[2018-01-18] MEDS ORDERED: Ondansetron ODT 4 MG TAB.RAPDIS SL PRN (09:30)
--- NOTE | 2018-01-18 11:12 | Discharge Summary ---
Date of Encounter: 01/18/18 Time of Encounter: 11:09 - Discharge Diagnosis (1) Schizophrenia Priority: Primary Status: Acute Assessment and Plan: Patient with a history of schizophrenia. She has not been taking antipsychotic medication. Family history schizoaffective disorder, no family history of suicide, no prior inpatient psych admissions. Admitted for accidental drug overdose versus intentional. Reporting that she had not slept in 10 days due to methamphetamine abuse and and taken high doses of gabapentin order to help sleep. However, there was some concern for suicidal ideation in the ED. Psychiatry consult was and has seen the patient. Offering supportive therapy, patient encouraged to participate in group and individual therapy. Psychiatrist restarted patient's risperidone 2 mg by mouth daily at bedtime for mood. Recommendations are to transfer to inpatient psych once medically stable. Patient was started on oral benzodiazepine medications yesterday evening and has been tolerating well. She is continuing to have nausea and diarrhea but this can be taken care of with oral antiemetics and antidiarrheals. Plan to discharge to inpatient psych today with oral Ativan. Patient has been instructed that she would benefit from abstention of illicit drug and alcohol use as well as finding a sponsor and attending meetings Qualifiers: Schizophrenia type: undifferentiated schizophrenia Qualified Code(s): F20.3 - Undifferentiated schizophrenia (2) Overdose Priority: Secondary Status: Acute Assessment and Plan: Presented with drug overdose, concern for intentional versus accidental. He does not appear to have suicidal ideation. Insight closely following. -Continuous sitter -Closely monitor for signs and symptoms of withdrawal; withdrawal symptoms improving compared to yesterday -Ativan transition to oral by mouth 3 times a day, tolerating well -Tolerating risperidone well -Plan is to DC to inpatient psych today Qualifiers: Encounter type: initial encounter Injury intent: intentional self-harm Qualified Code(s): T50.902A - Poisoning by unspecified drugs, medicaments and biological substances, intentional self-harm, initial encounter (3) Sedated due to medication Priority: Secondary Status: Resolved Assessment and Plan: Resolved (4) Polysubstance dependence Priority: Secondary Status: Chronic Assessment and Plan: History of polysubstance abuse. UDS positive for opiates, amphetamines, cocaine and marijuana Consider drug rehabilitation on discharge; consult oncology social work to discuss Transfer to inpatient psych today, resources regarding drug rehabilitation meetings to be given per psychiatry during inpatient stay (5) DVT prophylaxis Priority: Secondary Status: Acute Assessment and Plan: On heparin for DVT prophylaxis, discontinue upon discharge to inpatient psych. Increase activity Hospital course: Ms. Pozo is a 32 year old female Discharge discussed with: patient, nurse, inside solar sales consultant - Time Spent with Patient Total time spent providing and/or coordinating discharge services: Less than 30 minutes - Discharge Medications Home Medications: NALOXONE 4 MG Nasal [place] [Narcan] 4 mg NS AD #2 sprays 01/15/18 [Rx] Loperamide [Imodium] 2 mg PO Q4HR PRN capsule 01/18/18 [Rx] Ondansetron ODT [Zofran ODT] 4 mg SL Q6HR PRN tab.rapdis 01/18/18 [Rx] risperiDONE [RisperDAL] 2 mg PO DAILY tablet 01/18/18 [Rx] Allergies/Adverse Reactions: 3 Allergy/AdvReac Type Severity Reaction Status Date / Time ketorolac [From Toradol] Allergy Hives Verified 01/16/18 11:17 Date of admission: 01/15/18 22:49 Primary care physician: PCP NONE Consults: 01/16/18 08:06 Consult to Psychiatry [CONS] Routine Consulting Provider: Psychiatry Barb Reason for Consult: overdose Time Notified: 08:06 Call Completed: Yes 01/16/18 08:20 Consult to Clam Shucking Machine Tender [CONS] Routine Reason for SW Consult: discuss drug rehabilitation upon discharge - Constitutional Vitals: Temp Pulse Resp BP Pulse Ox 97.8 F 85 14 130/93 97 01/18/18 00:07 01/18/18 00:07 01/18/18 00:07 01/18/18 00:07 01/18/18 00:07 General appearance: Present: A&O X 3 - Head Head exam: Present: atraumatic, normocephalic - Eye Eye exam: Present: PERRL, conjuntiva pink, sclera anicteric Pupils: Present: PERRL - Neck Neck exam general surgery: Present: supple, trachea midline. Absent: lymphadenopathy - Respiratory Respiratory exam: Present: CTAB. Absent: accessory muscle use, rales, rhonchi, wheezes - Cardiovascular Cardiovascular exam: Present: RRR, +S1, +S2. Absent: diastolic murmur, gallop, rubs, systolic murmur - GI/Abdominal GI/Abdominal exam: Present: normal bowel sounds, soft, no peritoneal signs. Absent: distended, tenderness - Extremities Exam Extremities exam: Present: warm, radial pulses palpable and symmetrical. Absent : calf tenderness, cyanotic, pedal edema - Neurological Exam Neurological exam: Present: CN II-XII intact, oriented X3, no focal deficits. Absent: pronater drift, facial droop, speech deficit - Psychiatric Psychiatric exam: Present: anxious, flat affect. Absent: agitated, homicidal ideation, normal affect, normal mood, suicidal ideation - Skin Skin exam: Present: dry, intact - Patient Status Disposition: Transfer Psychiatric Hosp Condition: Fair Overall status at discharge: patient is progressing back to baseline - Discharge Instructions Follow Up With: NONE,PCP [Primary Care Provider] -
--- NOTE | 2018-01-18 11:27 | Psychiatry History & Physical ---
Date of Encounter: 01/18/18 Time of Encounter: 10:15 History of Present Illness Medicare Admission Attestation: For traditional Medicare patients the provided hospital inpatient services are reasonable and necessary and in the case of services not specified as inpatient -only under 42 CFR 419.22 (n), that they are appropriately provided as inpatient services in accordance 42 CFR 412.3. For Critical Access Hospital the patient may reasonably be expected to be discharged or transferred to a hospital within 96 hours after admission to the Critical Access Hospital. Admitted From: Emergency Dept Plans for Post Hospital Care: Transfer Inp Rehab Fac History of Present Illness: Ms. Pozo is a 32 year old female Past Med Surg Social Fam HX - Past Medical History Medical history: valvular heart disease - Past Psychiatric History Psychiatric history: Reports: schizophrenia Family psychiatric history: Yes Family History of Suicide: None - Past Surgical History Surgical History: cholecystectomy - Social History Smoking Status: Current every day smoker Smokeless Tobacco Status: No Alcohol use: none Drug use: opiates, methamphetamine, IV Drug Use - Family History Father Family Member Ethnicity: Non- Living Status: Still Living Hx Family Endocrine Disorder: Yes Medications & Allergies NALOXONE 4 MG Nasal [place] [Narcan] 4 mg NS AD #2 sprays 01/15/18 [Rx] Loperamide [Imodium] 2 mg PO Q4HR PRN capsule 01/18/18 [Rx] Ondansetron ODT [Zofran ODT] 4 mg SL Q6HR PRN tab.rapdis 01/18/18 [Rx] risperiDONE [RisperDAL] 2 mg PO DAILY tablet 01/18/18 [Rx] 3 Allergy/AdvReac Type Severity Reaction Status Date / Time ketorolac [From Toradol] Allergy Hives Verified 01/16/18 11:17 Review of Systems Constitutional: Denies: fever, chills, weakness, weight change Eyes: Denies: eye pain, vision change Ears, Nose, Throat: Denies: ear pain, throat pain, dental pain, hearing loss, congestion Cardiovascular: Denies: chest pain, palpitations, dyspnea on exertion Respiratory: Denies: cough, dyspnea, wheezes Gastrointestinal: Denies: abdominal pain, nausea, vomiting, diarrhea, constipation Genitourinary female: Denies: urgency, dysuria, frequency, abnormal menses, dyspareunia Musculoskeletal: Denies: joint swelling, joint pain Integumentary: Denies: rash, lesions, pruritus Neurological: Denies: headache, weakness, numbness, memory loss Psychiatric: Reports: auditory hallucinations, confusion, irritability Endocrine: Denies: fatigue, heat or cold intolerance Hematologic/Lymphatic: Denies: easy bruising, lymphadenopathy Allergic/Immunologic: Denies: urticaria, itchy eyes Exam - Constitutional Vitals: Temp Pulse Resp BP Pulse Ox 97.8 F 85 14 130/93 97 01/18/18 00:07 01/18/18 00:07 01/18/18 00:07 01/18/18 00:07 01/18/18 00:07 - Psychiatric Patient Orientation: Yes Person, Yes Time, Yes Place, Yes Circumstance Level of alertness: Alert Behavior: calm, cooperative Psychomotor activity: Slowed Eye Contact: Maintains Eye Contact Mood Description: Euthymic/stable Affect description: congruent with mood Speech Volume: Normal Speech pattern: normal rate, normal rhythm, normal tone, fluent Thought Process: Intact, Logical, Linear Thought Content: Yes Intact Perceptual Disturbances: Yes Reacting to internal stimuli, Yes Auditory hallucinations, Yes Visual hallucinations Memory Description: Grossly Intact Patient Reliability: Questionable Historian Fund of knowledge: Yes average Intelligence Estimate: Average Judgment: Fair Insight: Partial Results - Labs Labs: Laboratory Last Values WBC 6.6 K/mcL (4.3-11.1) 01/17/18 04:33 RBC 3.95 M/mcL (3.82-4.97) 01/17/18 04:33 Hgb 12.2 g/dL (11.5-15.4) 01/17/18 04:33 Hct 36.8 % (35.3-44.9) 01/17/18 04:33 MCV 93.2 fL (83.0-100.0) 01/17/18 04:33 MCH 30.9 pg (28.0-33.3) 01/17/18 04:33 MCHC 33.2 g/dL (31.6-35.5) 01/17/18 04:33 RDW 13.2 % (11.5-14.5) 01/17/18 04:33 Plt Count 264 K/mcL (140-400) 01/17/18 04:33 MPV 10.3 fL (9.4-12.4) 01/17/18 04:33 Immature Gran % 0.3 % (0-4) 01/17/18 04:33 Seg Neutrophils % 58.4 % 01/17/18 04:33 Lymphocytes % 32.1 % 01/17/18 04:33 Monocytes % 6.2 % 01/17/18 04:33 Eosinophils % 2.4 % 01/17/18 04:33 Basophils % 0.6 % 01/17/18 04:33 Neutrophils # 3.9 K/mcL (1.6-8.9) 01/17/18 04:33 Lymphocytes # 2.1 K/mcL (0.6-4.6) 01/17/18 04:33 Monocytes # 0.4 K/mcL (0.0-1.3) 01/17/18 04:33 Eosinophils # 0.2 K/mcL (0.0-0.6) 01/17/18 04:33 Basophils # 0.0 K/mcL (0.0-0.2) 01/17/18 04:33 Sodium 142 mEq/L (136-145) 01/17/18 04:33 Potassium 3.8 mEq/L (3.5-5.1) 01/17/18 04:33 Chloride 110 mEq/L (98-107) H 01/17/18 04:33 Carbon Dioxide 24 mEq/L (23-29) 01/17/18 04:33 BUN 15 mg/dL (6-20) 01/17/18 04:33 Creatinine 0.73 mg/dL (0.60-1.20) 01/17/18 04:33 Est GFR ( Amer) > 60 (> 60) 01/17/18 04:33 Est GFR (Non-Af Amer) > 60 (> 60) 01/17/18 04:33 BUN/Creatinine Ratio 21 (6-26) 01/17/18 04:33 Glucose 103 mg/dL (70-105) 01/17/18 04:33 Calculated Osmolality 295 (280-300) 01/17/18 04:33 Calcium 8.6 mg/dL (8.6-10.3) 01/17/18 04:33 Total Bilirubin 0.8 mg/dL (0.3-1.0) 01/15/18 21:42 Direct Bilirubin 0.2 mg/dL (0.0-0.2) 01/15/18 21:42 Indirect Bilirubin 0.6 mg/dL (0.0-1.2) 01/15/18 21:42 AST 40 Units/L (13-39) H 01/15/18 21:42 ALT 42 Units/L (7-52) 01/15/18 21:42 Alkaline Phosphatase 174 Units/L (34-104) H 01/15/18 21:42 Troponin I < 0.03 ng/mL (< 0.04) 01/15/18 21:42 Serum Total Protein 7.8 g/dL (6.4-8.9) 01/15/18 21:42 Albumin 3.9 g/dL (3.5-5.7) 01/15/18 21:42 Globulin 3.9 g/dL (2.4-3.5) H 01/15/18 21:42 Albumin/Globulin Ratio 1.0 (1.1-2.2) L 01/15/18 21:42 TSH 0.977 mcIU/mL (0.340-5.600) 01/15/18 21:42 Serum , Qual Negative (Negative) 01/15/18 21:42 Urine Color Dark Yellow (Yellow) 01/15/18 21:45 Urine Clarity Clear (Clear) 01/15/18 21:45 Urine pH 6.0 pH Units (5.0-8.0) 01/15/18 21:45 Ur Specific [place] 1.030 (1.010-1.025) H 01/15/18 21:45 Urine Protein Trace mg/dL (Neg-Trace) 01/15/18 21:45 Urine Glucose (UA) Normal mg/dL (Normal) 01/15/18 21:45 Urine Ketones Negative mg/dL (Negative) 01/15/18 21:45 Urine Blood Negative (Negative) 01/15/18 21:45 Urine Nitrite Negative (Negative) 01/15/18 21:45 Urine Bilirubin Small (Negative) H 01/15/18 21:45 Urine Urobilinogen Normal mg/dL (Normal) 01/15/18 21:45 Ur Leukocyte Esterase Trace (Negative) H 01/15/18 21:45 Urine Microscopic RBC 0-3 per hpf (0-3) 01/15/18 21:45 Urine Microscopic WBC 5-15 per hpf (0-3) H 01/15/18 21:45 Ur Squamous Epith Cells Many per lpf (None-Few) H 01/15/18 21:45 Urine Bacteria None Seen per hpf (None-Few) 01/15/18 21:45 Hyaline Casts Few per lpf (None-Few) 01/15/18 21:45 Salicylates < 2.5 mg/dL (15.0-30.0) L 01/15/18 21:42 Urine Opiates Screen Positive ng/mL (Upgwfj=873) H 01/15/18 21:45 Acetaminophen < 10 mcg/mL (10-20) L 01/15/18 21:42 Ur Barbiturates Screen Negative ng/mL (Eddhvf=966) 01/15/18 21:45 Ur Phencyclidine Scrn Negative ng/mL (Cutoff=25) 01/15/18 21:45 Ur Amphetamines Screen Positive ng/mL (Rqqzjt=6443) H 01/15/18 21:45 U Benzodiazepines Scrn Negative ng/mL (Ystyst=449) 01/15/18 21:45 Urine Cocaine Screen Positive ng/mL (Cutoff= 300) H 01/15/18 21:45 U Marijuana (THC) Screen Positive ng/mL (Cutoff = 50) H 01/15/18 21:45 Ethyl Alcohol < 10 mg/dL (Less than 10) 01/15/18 21:42 Assessment and Plan (1) Schizophrenia Current visit: Yes Status: Acute Qualifiers: Schizophrenia type: unspecified Qualified Code(s): F20.9 - Schizophrenia, unspecified (2) Schizophrenia Current visit: Yes Status: Acute Qualifiers: Schizophrenia type: undifferentiated schizophrenia Qualified Code(s): F20.3 - Undifferentiated schizophrenia (3) Drug abuse and dependence Current visit: No Status: Acute (4) Overdose Current visit: Yes Status: Acute Plan: Admit inpatient for safety and stabilization Risks, benefits, side effects, alternatives discussed w/pt: Yes Patient agreeable to treatment: Yes Qualifiers: Qualified Code(s): T50.901A - Poisoning by unspecified drugs, medicaments and biological substances, accidental (unintentional), initial encounter (5) Polysubstance dependence Current visit: Yes Status: Chronic
== END 2018-01-18 11:39 ==
LOC: 3BNU 21:02 → EMEROO 21:02 → 3BNU 23:20
PROVIDERS: ADMIT Internal Medicine; ATTEND Internal Medicine

== ENCOUNTER 2018-01-18 11:26 | Inpatient (IN) ==
[2018-01-18] MEDS ORDERED: Ibuprofen 400 MG TABLET PO PRN (11:44)
[2018-01-18] MEDS ORDERED: traZODone 50 MG TABLET PO PRN (11:44)
[2018-01-18] MEDS ORDERED: hydrOXYzine pamoate 25 MG CAPSULE PO PRN (11:44)
[2018-01-18] MEDS ORDERED: Haloperidol Lactate 5 MG/ML VIAL IM PRN (11:44)
[2018-01-18] MEDS ORDERED: Mag Hydrox/Al Hydrox/Simeth 30 ML UDC PO PRN (11:44)
[2018-01-18] MEDS ORDERED: *HR* LORazepam 2 MG/ML VIAL IM PRN (11:44)
[2018-01-18] MEDS ORDERED: MOM Conc 10 ML UD.LIQ PO PRN (11:44)
[2018-01-18] MEDS ORDERED: *HR* LORazepam 1 MG TABLET PO PRN (11:44)
[2018-01-18] MEDS ORDERED: *HR* LORazepam 0.5 MG TABLET PO PRN (11:51)
[2018-01-18] MEDS: Ondansetron ODT 4 MG TAB.RAPDIS SL PRN (14:09)
[2018-01-18] MEDS: Nicotine 2 MG GUM BC PRN (16:22)
[2018-01-18] MEDS: risperiDONE 1 MG TABLET PO SCH (20:42)
[2018-01-19] MEDS: risperiDONE 1 MG TABLET PO SCH (08:34)
[2018-01-19] MEDS: Ondansetron ODT 4 MG TAB.RAPDIS SL PRN ×2 (08:34→15:40)
[2018-01-19 09:50] VITALS: BP 139/93
[2018-01-19] MEDS: Nicotine 2 MG GUM BC PRN (10:02)
--- NOTE | 2018-01-19 17:20 | Discharge Summary ---
Date of Encounter: 01/19/18 Time of Encounter: 16:30 Diagnosis - Discharge Diagnosis (1) Drug abuse and dependence Priority: Primary Status: Acute (2) Heroin abuse Priority: Primary Status: Acute (3) Overdose Priority: Primary Status: Acute Qualifiers: Encounter type: initial encounter Injury intent: accidental or unintentional Qualified Code(s): T50.901A - Poisoning by unspecified drugs, medicaments and biological substances, accidental (unintentional), initial encounter (4) Polysubstance abuse Priority: Primary Status: Acute (5) Schizophrenia Priority: Primary Status: Acute Qualifiers: Schizophrenia type: paranoid schizophrenia Qualified Code(s): F20.0 - Paranoid schizophrenia Medications - Discharge Medications Prescriptions: Benztropine [Cogentin] 1 mg PO Q4H PRN #30 tablet PRN Reason: Extrapyramidal Effects NALOXONE 4 MG Nasal [place] [Narcan] 4 mg NS AD #2 sprays risperiDONE [RisperDAL] 2 mg PO DAILY #30 tablet Loperamide [Imodium] 2 mg PO Q4HR PRN capsule 01/18/18 [Rx] Ondansetron ODT [Zofran ODT] 4 mg SL Q6HR PRN tab.rapdis 01/18/18 [Rx] Benztropine [Cogentin] 1 mg PO Q4H PRN #30 tablet 01/19/18 [Rx] NALOXONE 4 MG Nasal [place] [Narcan] 4 mg NS AD #2 sprays 01/19/18 [Rx] risperiDONE [RisperDAL] 2 mg PO DAILY #30 tablet 01/19/18 [Rx] 3 Allergy/AdvReac Type Severity Reaction Status Date / Time ketorolac [From Toradol] Allergy Hives Verified 01/16/18 11:17 Provider Date of admission: 01/18/18 11:26 Primary care physician: PCP NONE Discharging clinician: Nicko Simpson Psychiatry Exam - Constitutional Vitals: Temp Pulse Resp BP 97.7 F 91 18 139/93 01/19/18 09:00 01/19/18 09:00 01/19/18 09:00 01/19/18 09:00 General appearance: age & developmentally appropriate, well-groomed - Musculoskeletal Gait: normal Strength & Tone: normal for patient - Psychiatric Patient Orientation: Yes Person, Yes Time, Yes Place, Yes Circumstance Level of alertness: Alert Behavior: calm, cooperative Psychomotor activity: Normal Eye Contact: Maintains Eye Contact Mood Description: Euthymic/stable Affect description: congruent with mood Speech Volume: Normal Speech pattern: normal rate, normal rhythm, normal tone, fluent Language & Vocabulary: consistent with education Thought Process: Intact, Logical, Linear, Goal Oriented Thought Content: Yes Intact Attention Span Ability: Capable of Focused Attention Memory Description: Grossly Intact Patient Reliability: Questionable Historian Fund of knowledge: Yes average Intelligence Estimate: Average Judgment: Fair Insight: Partial Hospital Course Hospital course: Pt is a 32 yo, , female, x1 with 7 children (between 5-17) who presents for polysubstance use D/O, opioid use D/O and Schizoaffective D/O bipolar type. Pt noted she overdosed on Gabapentin due to wanting to go to sleep to reduce withdrawal symptoms per pt. Pt noted she is doing much better today. Pt noted she felt safe and comfortable for D/C home to boyfriends sisters, which was confirmed. Pt agreed to continue risperdione 2 m g PO QHS for mood. Pt was educated on the risks benifits and side effects (including TD which is possibly permanent and EPS symptoms) of the medication including no medication. Pt agreed to take medication. PT noted she had significant improvement since admission and feels she is doing much better. Pt denied any side effects to current medications. Pt noted she felt safe and comfortable on the unit. Pt was in agreement with treatment plan. Pt noted that she is doing Pretty good today. Pt noted she slept good, " last night. Pt noted her appetite is good. Pt rated her depression a 0, on a scale of zero to ten with ten being the worst and zero being none. Pt rate her anxiety a 0, on the same scale. Pt denied any current auditory or visual hallucinations. Pt denied any thoughts to harm herself or anyone else. Pt noted a family hx of schizoaffective D/O in her mother. Pt denies any family hx of suicides P denied any previous inpt psychatric admissions. Pt denied any current pending legal issues Pt noted her highest education in 9th grade. Tobacco: 1 ppd Alcohol: Denies Street: Methamphetamine and Heroin IV regularly Caffeine: 2-3 per day MSE: Alert and Oriented x3 Appearance: neatly groomed dressed in appropriate hospital attire. Behavior: friendly, courteous, polite Speech: Fluent, normal tone, normal rate Mood: good Affect: mood congruent Thought content: no HI noted, no SI noted, no delusions noted Psychosis: no psychosis noted, currently not responding to internal stimuli. Thought Process: Linear coherent goal directed. Judgment: Intact. Insight: Intact. 1.Interval hx 2.Continue current medications 3.Review current labs 4.Pt had an opportunity to ask questions and discuss current treatment plan. 5.Supportive therapy was provided 6.Pt encouraged to consider group or individual therapy 7.Pt was in agreement with treatment plan. 8.Pt was educated on the risks benefits and side effects of current medications. 9. Continue risperidone 2 mg PO QHS for mood 10. D/C Pt to Boyfriends sister, was confirmed 11. Follow up with all scheduled appointments 12. Abstain from any alcohol or illict substances. 13. Pt educated on 90 meetings in 90 day, staying sober and finding a sponsor. 14. Take all medications as prescribed Time spent discussing smoking cessation with patient: 3 to 10 minutes Does patient wish to continue nicotine replacement upon disc: No - Time Spent with Patient Total time spent providing and/or coordinating discharge services: Greater than 30 minutes Assessment and Plan - Patient/Caregiver Discharge Instructions Activity: resume usual activities as tolerated Diet: regular diet - Follow up Plan [facility] up with: [facility]Outside] - 01/24/18 9:00 am (The above appointment is with Marcy Pardo, counselor. Marcy will open your case and schedule additional services as needed. You will also see Stefani Villavicencio for outpatient psychiatric assessment and medication management services on 02/23/2018 at 3:30 PM. Please bring your insurance card and photo ID to your first appointment. Please also arrive 30 minutes early to your first appointment to complete. ) Emily Maldonado [Advanced Practice Nurse] - 02/20/18 12:00 pm (The above appointment is with Emily Maldonado CNP, at [facility]. This appointment is to establish you with a primary care provider. Your needs for medication and/or Vivitrol will be assessed and treated as indicated as well. Please arrive 15 minutes early to complete paperwork. Please bring your insurance card, photo ID and list of current medications to your first appointment. The above appointment(s) reflects first availability. You may contact the office regularly to check for cancellations that may allow you to be seen sooner.) Functional capacity at discharge: independent ambulation Overall status at discharge: Stable Disposition: Home, Self-Care Quality - Multiple Antipsychotics Patient discharged on 2 or more antipsychotic medications: No (PT only D/C'd on risperidone, all other were prn)
--- NOTE | 2018-01-19 17:33 | Psychiatry History & Physical ---
Date of Encounter: 01/18/18 Time of Encounter: 17:00 History of Present Illness Patient Stated Chief Complaint: I need help staying sober and getting back on my medications Medicare Admission Attestation: For traditional Medicare patients the provided hospital inpatient services are reasonable and necessary and in the case of services not specified as inpatient -only under 42 CFR 419.22 (n), that they are appropriately provided as inpatient services in accordance 42 CFR 412.3. For Critical Access Hospital the patient may reasonably be expected to be discharged or transferred to a hospital within 96 hours after admission to the Critical Access Hospital. Admitted From: Intrahospital Transfer Plans for Post Hospital Care: Home History of Present Illness: Pt is a 32 yo, , female, x1 with 7 children (between 5-17) who presents for polysubstance use D/O, opioid use D/O and Schizoaffective D/O bipolar type. Pt noted she overdosed on Gabapentin due to wanting to go to sleep to reduce with drawal symptoms per pt. Pt noted she is doing much better today. Pt agreed to transfer to once stable. Pt agreed to continue risperdione 2 m g PO QHS for mood. Pt was educated on the risks benifits and side effects (including TD which is possibly permanent and EPS symptoms) of the medication including no medication. Pt agreed to take medication. PT noted she was still in active withdrawal and requiring IV prns. Pt denied any side effects to current medications. Pt noted she felt safe and comfortable on the unit. Pt was in agreement with treatment plan. Pt noted that she is doing Pretty good today. Pt noted she slept some, " last night. Pt noted her appetite is improving. Pt rated her depression a 0, on a scale of zero to ten with ten being the worst and zero being none. Pt rate her anxiety a 0, on the same scale. Pt denied any visual hallucinations, however noted chronic auditory hallucinations of voices that are muffled. Pt denied any thoughts to harm herself or anyone else. Pt noted a family hx of schizoaffective D/O in her mother. Pt denies any family hx of suicides P denied any previous inpt psychatric admissions. Pt denied any current pending legal issues Pt noted her highest education in 9th grade. Tobacco: 1 ppd Alcohol: Denies Street: Methamphetamine and Heroin IV regularly Caffeine: 2-3 per day MSE: Alert and Oriented x3 Appearance: neatly groomed dressed in appropriate hospital attire. Behavior: friendly, courteous, polite Speech: Fluent, normal tone, normal rate Mood: depressed Affect: mood congruent Thought content: no HI noted, no SI noted, Questionable delusions noted Psychosis: noted auditory hallucinations. Thought Process: Linear coherent goal directed yet reduction in neurocognition noted due to withdrawal symptoms. Judgment: fair. Insight: questionable. 1.Interval hx 2.Continue current medications 3.Review current labs 4.Pt had an opportunity to ask questions and discuss current treatment plan. 5.Supportive therapy was provided 6.Pt encouraged to consider group or individual therapy 7.Pt was in agreement with treatment plan. 8.Pt was educated on the risks benefits and side effects of current medications. 9. Continue pt with sitter. 10. Start risperidone 2 mg PO QHS for mood 11. Transfer to [facility] once medically stable and all IV PRN medications D/C' c 12. Follow up with all scheduled appointments 13. Abstain from any alcohol or illict substances. 14. Pt educated on 90 meetings in 90 day, staying sober and finding a sponsor. 15. Take all medications as prescribed Past Med Surg Social Fam HX - Past Medical History Medical history: hepatitis, valvular heart disease - Past Psychiatric History Psychiatric history: Reports: schizophrenia Family psychiatric history: Yes Family History of Suicide: None - Past Surgical History Surgical History: cholecystectomy - Social History Smoking Status: Current every day smoker Smokeless Tobacco Status: No Alcohol use: none Drug use: cocaine, opiates, marijuana, methamphetamine, IV Drug Use - Family History Father Family Member Ethnicity: Non- Living Status: Still Living Hx Family Endocrine Disorder: Yes Medications & Allergies Loperamide [Imodium] 2 mg PO Q4HR PRN capsule 01/18/18 [Rx] Ondansetron ODT [Zofran ODT] 4 mg SL Q6HR PRN tab.rapdis 01/18/18 [Rx] Benztropine [Cogentin] 1 mg PO Q4H PRN #30 tablet 01/19/18 [Rx] NALOXONE 4 MG Nasal [place] [Narcan] 4 mg NS AD #2 sprays 01/19/18 [Rx] risperiDONE [RisperDAL] 2 mg PO DAILY #30 tablet 01/19/18 [Rx] 3 Allergy/AdvReac Type Severity Reaction Status Date / Time ketorolac [From Toradol] Allergy Hives Verified 01/16/18 11:17 Review of Systems Constitutional: Denies: fever, chills, weakness, weight change Eyes: Denies: eye pain, vision change Ears, Nose, Throat: Denies: ear pain, throat pain, dental pain, hearing loss, congestion Cardiovascular: Denies: chest pain, palpitations, dyspnea on exertion Respiratory: Denies: cough, dyspnea, wheezes Gastrointestinal: Denies: abdominal pain, nausea, vomiting, diarrhea, constipation Genitourinary female: Denies: urgency, dysuria, frequency, abnormal menses, dyspareunia Musculoskeletal: Denies: joint swelling, joint pain Integumentary: Denies: rash, lesions, pruritus Neurological: Denies: headache, weakness, numbness, memory loss Endocrine: Denies: fatigue, heat or cold intolerance Hematologic/Lymphatic: Denies: easy bruising, lymphadenopathy Allergic/Immunologic: Denies: urticaria, itchy eyes Exam - HEENT Head exam IM: Present: atraumatic Eye exam IM: Present: EOMI, normal appearance, PERRL ENT exam IM: Present: normal exam - Neurological Neurological exam: Present: CN II-XII intact - Respiratory Respiratory exam IM: Present: CTAB - GI/Abdominal GI/Abdominal exam IM: Present: normal bowel sounds, soft. Absent: tenderness - Extremities Extremities exam IM: Present: full ROM - Skin Skin exam IM: Present: dry, warm - Constitutional Vitals: Temp Pulse Resp BP 97.7 F 91 18 139/93 01/19/18 09:00 01/19/18 09:00 01/19/18 09:00 01/19/18 09:00 General appearance: age & developmentally appropriate, well-groomed, well- nourished - Musculoskeletal Gait: normal Station: relaxed Strength & Tone: normal for patient - Psychiatric Patient Orientation: Yes Person, Yes Time, Yes Place Level of alertness: Alert Behavior: calm, cooperative Psychomotor activity: Normal Eye Contact: Maintains Eye Contact Mood Description: Euthymic/stable Affect description: congruent with mood, full range Speech Volume: Normal Speech pattern: normal rhythm, normal tone, fluent, spontaneous, slowed Language & Vocabulary: consistent with education Thought Process: Linear, Goal Oriented Thought Content: Yes Intact, No Suicidal ideation, No Homicidal ideation, No Overt delusions Perceptual Disturbances: Yes Auditory hallucinations, No Visual hallucinations Attention Span Ability: Capable of Focused Attention Memory Description: Grossly Intact Patient Reliability: Questionable Historian Fund of knowledge: Yes average, Yes aware of current events Intelligence Estimate: Average Judgment: Limited Insight: Partial Assessment and Plan (1) Drug abuse and dependence Current visit: No Status: Acute (2) Heroin abuse Current visit: No Status: Acute (3) Overdose Current visit: No Status: Acute Qualifiers: Encounter type: initial encounter Injury intent: accidental or unintentional Qualified Code(s): T50.901A - Poisoning by unspecified drugs, medicaments and biological substances, accidental (unintentional), initial encounter (4) Polysubstance abuse Current visit: No Status: Acute (5) Schizophrenia Current visit: No Status: Acute Qualifiers: Schizophrenia type: paranoid schizophrenia Qualified Code(s): F20.0 - Paranoid schizophrenia
== END 2018-01-19 17:30 | disposition home or self-care (01) | DRG 812 ==
LOC: 1ANU 11:26
PROVIDERS: ADMIT General Practice; ATTEND General Practice